=== PATIENT | male | born 1995 | race Caucasian/White ===

== ENCOUNTER 2019-04-04 16:53 | Inpatient (IN) | payer OTHER ==
[~2019-04-04] VITALS: Ht 170.2 cm; Wt 62.1 kg
[2019-04-04 18:01] LABS: PLATELET COUNT 230 x10^3mcL (130-400); RED CELL DISTRIBUTION WIDTH 13.1 % (11.5-14.5)
[2019-04-04 18:04] LABS: BASOPHIL % 0 % (0-2)
[2019-04-04 18:07] LABS: CALCIUM 8.4 mg/dL (8.5-10.1); CREATININE SERUM 0.7 mg/dL (0.7-1.3); GFR1 > 60 mL/min; GLUCOSE SERUM 347 mg/dL (74-106)
[2019-04-04 18:20] LABS: ALKALINE PHOSPHATASE 120 U/L (46-116); ALT/SGPT 17 U/L (16-63); AST/SGOT 4 U/L (15-37); BILIRUBIN TOTAL 1.44 mg/dL (0.20-1.00); CARBON DIOXIDE 21.8 mmol/L (21-32); CHLORIDE SERUM 93 mmol/L (98-107); POTASSIUM SERUM 3.6 mmol/L (3.5-5.1); SODIUM SERUM 132 mmol/L (136-145); TOTAL PROTEIN, SERUM 7.5 g/dL (6.4-8.2)
[2019-04-04 18:21] LABS: ALBUMIN 3.2 g/dL (3.4-5.0)
[2019-04-04] MEDS ORDERED: LANTUS SOLOS100 U/M1 (19:33)
[2019-04-04] MEDS ORDERED: APIDRA100 U/M1 (19:34)
[2019-04-04 20:14] VITALS: BP 116/52
[2019-04-04 20:21] VITALS: Ht 170.2 cm; Wt 62.1 kg
[2019-04-05 05:12] VITALS: BP 100/53
[2019-04-05 06:44] LABS: ALKALINE PHOSPHATASE 97 U/L (46-116); ALT/SGPT 13 U/L (16-63); AST/SGOT 12 U/L (15-37); BILIRUBIN TOTAL 1.4 mg/dL (0.20-1.00); CALCIUM 7.5 mg/dL (8.5-10.1); CARBON DIOXIDE 24.1 mmol/L (21-32); CHLORIDE SERUM 99 mmol/L (98-107); CREATININE SERUM 0.8 mg/dL (0.7-1.3); GFR1 > 60 mL/min; GLUCOSE SERUM 294 mg/dL (74-106); POTASSIUM SERUM 4.3 mmol/L (3.5-5.1); SODIUM SERUM 135 mmol/L (136-145); TOTAL PROTEIN, SERUM 6.3 g/dL (6.4-8.2)
[2019-04-05 06:49] LABS: BASOPHIL % 0.6 % (0-2); PLATELET COUNT 204 x10^3mcL (130-400); RED CELL DISTRIBUTION WIDTH 13.4 % (11.5-14.5)
[2019-04-05 06:59] LABS: ALBUMIN 2.4 g/dL (3.4-5.0)
[2019-04-05 08:16] VITALS: BP 91/55
[2019-04-05 13:17] VITALS: BP 106/72
[2019-04-05 17:11] VITALS: BP 106/60
[2019-04-05 21:21] VITALS: BP 107/77
[2019-04-06 05:43] VITALS: BP 110/68
[2019-04-06 06:25] LABS: BASOPHIL % 0.6 % (0-2); PLATELET COUNT 220 x10^3mcL (130-400); RED CELL DISTRIBUTION WIDTH 13.1 % (11.5-14.5)
[2019-04-06 06:28] LABS: ALKALINE PHOSPHATASE 91 U/L (46-116); ALT/SGPT 14 U/L (16-63); AST/SGOT 10 U/L (15-37); BILIRUBIN TOTAL 0.79 mg/dL (0.20-1.00); CALCIUM 8.1 mg/dL (8.5-10.1); CARBON DIOXIDE 26.3 mmol/L (21-32); CHLORIDE SERUM 99 mmol/L (98-107); CREATININE SERUM 0.6 mg/dL (0.7-1.3); GFR1 > 60 mL/min; GLUCOSE SERUM 295 mg/dL (74-106); MAGNESIUM 1.6 mg/dL (1.8-2.4); POTASSIUM SERUM 3.8 mmol/L (3.5-5.1); SODIUM SERUM 135 mmol/L (136-145); TOTAL PROTEIN, SERUM 6.4 g/dL (6.4-8.2)
[2019-04-06 06:46] LABS: ALBUMIN 2.4 g/dL (3.4-5.0)
[2019-04-06 08:12] VITALS: BP 95/63
[2019-04-06] MEDS ORDERED: BACTRIM DS1 TAB PO (09:27)
[2019-04-06 12:50] VITALS: BP 105/73
== END 2019-04-06 19:52 | disposition home or self-care (01) | DRG 720 ==
LOC: ED 16:53 → DU 19:02
PROVIDERS: Emergency Medicine; Internal Medicine Pulmonary Disease; ADMIT Internal Medicine
DX: A41.9 Sepsis, unspecified organism (principal); E11.621 Type 2 diabetes mellitus with foot ulcer; I11.9 Hypertensive heart disease without heart failure; L97.411 Non-pressure chronic ulcer of right heel and midfoot limited to breakdown of skin; L03.115 Cellulitis of right lower limb; E11.65 Type 2 diabetes mellitus with hyperglycemia
CPT/HCPCS: 82962; G0378; J1644; J1815; J2543; J3370; J7030; Q0092

== ENCOUNTER 2019-12-26 14:45 | Emergency (ER) | payer OTHER ==
[~2019-12-26] VITALS: Ht 170.2 cm; Wt 51.7 kg
[~2019-12-26 14:45] MED LIST: APIDRA100 U/M1; BACTRIM DS1 TAB PO; LANTUS SOLOS100 U/M1
[2019-12-26 15:29] LABS: BASOPHIL % 0.7 % (0-2)
[2019-12-26 15:31] LABS: PLATELET COUNT 455 x10^3mcL (130-400)
[2019-12-26 15:52] LABS: BILIRUBIN TOTAL 0.44 mg/dL (0.20-1.00); CALCIUM 8.2 mg/dL (8.5-10.1); CARBON DIOXIDE 24.2 mmol/L (21-32); POTASSIUM SERUM 4.2 mmol/L (3.5-5.1)
[2019-12-26 15:55] LABS: ALBUMIN 2.1 g/dL (3.4-5.0)
[2019-12-26 15:58] LABS: CREATININE SERUM 4.6 mg/dL (0.7-1.3)
[2019-12-26 20:00] VITALS: BP 121/95
== END 2019-12-26 21:05 | disposition home or self-care (01) ==
LOC: ED 14:45
PROVIDERS: Emergency Medicine
DX: E10.649 Type 1 diabetes mellitus with hypoglycemia without coma (principal); E10.22 Type 1 diabetes mellitus with diabetic chronic kidney disease; N18.6 End stage renal disease; Z88.1 Allergy status to other antibiotic agents; Z98.890 Other specified postprocedural states
CPT/HCPCS: 82962

== ENCOUNTER 2020-01-30 14:13 | Inpatient (IN) | payer OTHER, SELFPAY ==
[~2020-01-30] VITALS: Ht 170.2 cm; Wt 56.7 kg
[2020-01-30 14:58] LABS: PLATELET COUNT 360 x10^3mcL (130-400)
[2020-01-30 15:13] LABS: ALKALINE PHOSPHATASE 114 U/L (46-116); ALT/SGPT 16 U/L (16-63); AST/SGOT 10 U/L (15-37); BILIRUBIN TOTAL 1.2 mg/dL (0.20-1.00); CALCIUM 9.3 mg/dL (8.5-10.1); CARBON DIOXIDE 26.2 mmol/L (21-32); CHLORIDE SERUM 98 mmol/L (98-107); GLUCOSE SERUM 109 mg/dL (74-106); LACTIC DEHYDROGENASE (LDH) 168 U/L (100-190); POTASSIUM SERUM 5.5 mmol/L (3.5-5.1); SODIUM SERUM 132 mmol/L (136-145)
[2020-01-30 15:15] LABS: RED CELL DISTRIBUTION WIDTH 15.8 % (11.5-14.5)
[2020-01-30 15:21] LABS: ALBUMIN 2.6 g/dL (3.4-5.0); GFR1 11 mL/min; TOTAL PROTEIN, SERUM 8.9 g/dL (6.4-8.2)
[2020-01-30 15:24] LABS: CREATININE SERUM 6.5 mg/dL (0.7-1.3)
[2020-01-30] MEDS ORDERED: CLONIDINE0.2 M1 (15:35)
[2020-01-30 15:36] LABS: BAND NEUTROPHIL 5 % (0-10); BASOPHIL 0 % (0-2); MONOCYTE 6 % (0-7); SEGMENTED NEUTROPHILS 80 % (37-75); rbc morphology (normal/abnorm) ABNORMAL (NORMAL)
[2020-01-30] MEDS ORDERED: DEXTROSE 50% IV (15:38)
[2020-01-30] MEDS ORDERED: [UNRECOGNIZED DRUG - OTHER] IV (15:38)
[2020-01-30] MEDS ORDERED: NITROSTAT0.4 MG SL (15:39)
[2020-01-30] MEDS ORDERED: DIPHENHYDRAMINE25 M3 IV (15:40)
[2020-01-30] MEDS ORDERED: DIPHENHYDRAMINE25 M3 PO (15:40)
[2020-01-30 15:41] LABS: C REACTIVE PROTEIN 27.7 mg/dL (<=0.9)
[2020-01-30] MEDS ORDERED: LOPERAMIDE HCL2 M1 PO (15:41)
[2020-01-30] MEDS ORDERED: PROMETHAZINE25 MG PO (15:42)
[2020-01-30] MEDS ORDERED: DULCOLAX10 M1 PR (15:43)
[2020-01-30] MEDS ORDERED: GOOD NEIGH1200 MG/15 PO (15:43)
[2020-01-30] MEDS ORDERED: MIRTAZAPINE7.5 M1 PO (15:44)
[2020-01-30] MEDS ORDERED: FERROUS SULFAT325 M2 PO (15:45)
[2020-01-30] MEDS ORDERED: NEP PO (15:46)
[2020-01-30] MEDS ORDERED: FLEET ENEMA135 ML (15:46)
[2020-01-30] MEDS ORDERED: BASAGLAR K100 UNIT/1 SQ (15:47)
[2020-01-30] MEDS ORDERED: HEPARIN 6,6000 UNIT/ SQ (15:48)
[2020-01-30] MEDS ORDERED: ZINC SULFATE220 M2 PO (15:49)
[2020-01-30] MEDS ORDERED: RENVELA800 M1 PO (15:50)
[2020-01-30] MEDS ORDERED: HUMULIN R100 U/1 M1 (15:50)
[2020-01-30] MEDS ORDERED: MIDODRINE HCL10 MG (15:51)
[2020-01-30] MEDS ORDERED: MIDODRINE HCL5 M1 PO (15:53)
[2020-01-30] MEDS ORDERED: [UNRECOGNIZED DRUG - OTHER] PO (15:56)
[2020-01-30] MEDS ORDERED: [UNRECOGNIZED DRUG - CODE] IV (15:57)
[2020-01-30 17:47] LABS: microscopic required? YES
[2020-01-30 17:50] LABS: urine erythrocyte 3+ (NEGATIVE)
[2020-01-30 17:51] LABS: UA SPECIFIC GRAVITY 1.025 (1.005-1.035)
[2020-01-30 19:48] VITALS: Ht 170.2 cm; Wt 56.7 kg
[2020-01-30 20:42] VITALS: BP 152/106
[2020-01-30 22:00] VITALS: BP 106/64
[2020-01-31 01:18] VITALS: BP 106/64
[2020-01-31 05:20] VITALS: BP 108/63
[2020-01-31 08:11] LABS: BILIRUBIN TOTAL 0.9 mg/dL (0.20-1.00); CALCIUM 8.6 mg/dL (8.5-10.1); CARBON DIOXIDE 17.3 mmol/L (21-32); POTASSIUM SERUM 4.7 mmol/L (3.5-5.1); TOTAL PROTEIN, SERUM 7.3 g/dL (6.4-8.2)
[2020-01-31 08:13] LABS: CREATININE SERUM 7.1 mg/dL (0.7-1.3)
[2020-01-31 08:21] LABS: PLATELET COUNT 296 x10^3mcL (130-400)
[2020-01-31 08:42] VITALS: BP 98/51
[2020-01-31 12:40] LABS: BAND NEUTROPHIL 4 % (0-10); MONOCYTE 8 % (0-7); SEGMENTED NEUTROPHILS 75 % (37-75); rbc morphology (normal/abnorm) NORMAL (NORMAL)
[2020-01-31 14:24] VITALS: BP 94/54
[2020-01-31 18:52] VITALS: BP 100/58
[2020-01-31 22:24] VITALS: BP 101/62
[2020-02-01 05:30] VITALS: BP 116/76
[2020-02-01 07:05] LABS: BASOPHIL % 0.6 % (0-2); PLATELET COUNT 339 x10^3mcL (130-400)
[2020-02-01 07:34] LABS: BILIRUBIN TOTAL 0.6 mg/dL (0.20-1.00); CALCIUM 9.2 mg/dL (8.5-10.1); CARBON DIOXIDE 16.7 mmol/L (21-32); POTASSIUM SERUM 5.3 mmol/L (3.5-5.1); TOTAL PROTEIN, SERUM 7.7 g/dL (6.4-8.2)
[2020-02-01 07:36] LABS: RED CELL DISTRIBUTION WIDTH 15.4 % (11.5-14.5)
[2020-02-01 07:44] LABS: CREATININE SERUM 8.2 mg/dL (0.7-1.3)
[2020-02-01 08:11] LABS: MAGNESIUM 2.2 mg/dL (1.8-2.4); PHOSPHOROUS 6.5 mg/dL (2.5-4.9)
[2020-02-01 09:16] VITALS: BP 117/79
[2020-02-01 13:10] VITALS: BP 149/97
[2020-02-01 14:00] VITALS: BP 123/76
[2020-02-01 22:17] VITALS: BP 121/88
[2020-02-02 06:19] VITALS: BP 113/70
[2020-02-02 06:57] LABS: BASOPHIL % 0.9 % (0-2); PLATELET COUNT 315 x10^3mcL (130-400)
[2020-02-02 07:17] LABS: RED CELL DISTRIBUTION WIDTH 15.5 % (11.5-14.5)
[2020-02-02 07:19] LABS: BILIRUBIN TOTAL 0.4 mg/dL (0.20-1.00); CALCIUM 8.4 mg/dL (8.5-10.1); CARBON DIOXIDE 18.7 mmol/L (21-32); POTASSIUM SERUM 3.9 mmol/L (3.5-5.1); TOTAL PROTEIN, SERUM 7.1 g/dL (6.4-8.2)
[2020-02-02 07:28] LABS: CREATININE SERUM 5.3 mg/dL (0.7-1.3)
[2020-02-02 07:41] LABS: MAGNESIUM 1.9 mg/dL (1.8-2.4); PHOSPHOROUS 4.4 mg/dL (2.5-4.9)
[2020-02-02 10:00] VITALS: BP 106/57
[2020-02-02 13:39] VITALS: BP 128/90
[2020-02-02 18:19] VITALS: BP 147/94
[2020-02-02 21:00] VITALS: BP 123/88
[2020-02-03 05:30] VITALS: BP 102/70
[2020-02-03 07:02] LABS: BASOPHIL % 0.9 % (0-2); PLATELET COUNT 327 x10^3mcL (130-400)
[2020-02-03 08:07] LABS: BILIRUBIN TOTAL 0.4 mg/dL (0.20-1.00); CALCIUM 8.5 mg/dL (8.5-10.1); CARBON DIOXIDE 19.8 mmol/L (21-32); POTASSIUM SERUM 4.9 mmol/L (3.5-5.1); TOTAL PROTEIN, SERUM 7.4 g/dL (6.4-8.2)
[2020-02-03 08:09] LABS: ALBUMIN 2.1 g/dL (3.4-5.0); CREATININE SERUM 6.5 mg/dL (0.7-1.3)
[2020-02-03 08:46] VITALS: BP 97/63
[2020-02-03 09:30] LABS: RED CELL DISTRIBUTION WIDTH 14.9 % (11.5-14.5)
[2020-02-03 12:14] VITALS: BP 113/75
[2020-02-03 16:09] VITALS: BP 130/90
[2020-02-03 22:47] VITALS: BP 121/93
[2020-02-04] VITALS (7 sets, daily range): BP systolic 92–144; BP diastolic 56–95
[2020-02-04 07:31] LABS: PLATELET COUNT 317 x10^3mcL (130-400)
[2020-02-04 07:47] LABS: RED CELL DISTRIBUTION WIDTH 14.9 % (11.5-14.5)
[2020-02-04 07:48] LABS: BILIRUBIN TOTAL 0.4 mg/dL (0.20-1.00); CALCIUM 8.2 mg/dL (8.5-10.1); CARBON DIOXIDE 17.8 mmol/L (21-32); TOTAL PROTEIN, SERUM 7.3 g/dL (6.4-8.2)
[2020-02-04 08:04] LABS: ALBUMIN 2.2 g/dL (3.4-5.0); CREATININE SERUM 7.3 mg/dL (0.7-1.3)
== END 2020-02-05 00:30 | DRG 720 ==
LOC: ED 14:13 → DU 18:22
PROVIDERS: Emergency Medicine; Internal Medicine Nephrology; ADMIT Hospitalist; ATTEND Hospitalist
PROC: 5A1D70Z Performance of Urinary Filtration, Intermittent, Less than 6 Hours Per Day (ICD-10-PCS; principal; 2020-02-01)
PROC: 5A1D70Z Performance of Urinary Filtration, Intermittent, Less than 6 Hours Per Day (ICD-10-PCS; 2020-02-04)
DX: A41.9 Sepsis, unspecified organism (principal); E10.22 Type 1 diabetes mellitus with diabetic chronic kidney disease; N17.9 Acute kidney failure, unspecified; I12.0 Hypertensive chronic kidney disease with stage 5 chronic kidney disease or end stage renal disease; E87.1 Hypo-osmolality and hyponatremia; N18.6 End stage renal disease; Z99.2 Dependence on renal dialysis; D64.9 Anemia, unspecified; L03.115 Cellulitis of right lower limb; Z20.828 Contact with and (suspected) exposure to other viral communicable diseases
CPT/HCPCS: 36600; 82962; 83880; 85378; 87804; 97110-GP; 97530-GP; G0378; J0744; J0885-EC; J1644; J1815; J2543; J2997; J3370; J7030; J7040; J7050; P9047; Q0092; U0003-CS